=== PATIENT | female | born 1955 | race African-American/Black ===

== ENCOUNTER 2016-06-19 03:57 | Emergency (ER) | payer OTHER ==
[~2016-06-19] VITALS: Ht 160 cm; Wt 99.8 kg
[2016-06-19 04:21] VITALS: BP 148/70
[2016-06-19] MEDS ORDERED: NORCO 10-325 T1 EACH ORAL (04:31)
[2016-06-19] MEDS ORDERED: AMLODIPINE BESYL5 MG ORAL (04:31)
[2016-06-19] MEDS ORDERED: LISINOPRIL2.5 MG ORAL (04:31)
--- NOTE | 2016-06-19 04:52 | Emergency Room Report ---
History of Present Illness General Chief Complaint: Abdominal Pain Source: Patient Present Illness HPI Is a 60-year-old female with no past history. She presents with 2 complaints. First complaint is that she has a chronic cough since December. Occasional phlegm. Worse with lying flat. No fever chills been no weight loss. She only smokes occasionally. No family history or personal history of asthma. Her second complaint is abdominal pain. Pain is diffuse. Throbbing in nature. No vomiting or diarrhea. No fever. Onset for 2 days. Allergies: Coded Allergies: No Known Allergies (Unverified , 06/19/16) Patient History Past Medical History: see triage record, old chart reviewed Past Surgical History: hysterectomy Pertinent Family History: none Social History: Reports: smoking Last Menstrual Period: hysterectomy 2000 Now: No : 3 Para: 1 Reviewed Nursing Documentation: PMH: Agreed, PSxH: Agreed Nursing Documentation-PMH Past Medical History: No History, Except For Hx Hypertension: Yes Review of Systems Eye: Denies: blurred vision, eye pain ENT: Denies: ear pain, nose congestion, throat swelling Respiratory: Reports: cough, Denies: shortness of breath Cardiovascular: Denies: chest pain, palpitations Gastrointestinal: Reports: abdominal pain, Denies: diarrhea, nausea, vomiting Musculoskeletal: Denies: back pain, joint pain Skin: Denies: rash Neurological: Denies: headache, numbness Endocrine: Denies: increased thirst, increased urine Hematologic/Lymphatic: Denies: easy bruising All Other Systems: negative except mentioned in HPI Physical Exam Vital Signs Date Time Temp Pulse Resp B/P Pulse Ox O2 Delivery O2 Flow Rate FiO2 06/19/16 04:21 98.4 99 21 135/86 98 Room Air vitals normal Sp02 EP Interpretation: reviewed, normal General Appearance: well appearing, no apparent distress, alert, obese Head: normocephalic, atraumatic Eyes: bilateral eye EOMI, bilateral eye PERRL ENT: hearing grossly normal, normal pharynx Neck: full range of motion, supple, no meningismus Respiratory: chest non-tender, lungs clear, normal breath sounds Cardiovascular #1: regular rate, rhythm, no murmur Gastrointestinal: normal bowel sounds, no mass, no organomegaly, no bruit, non- distended, tenderness - diffuse Musculoskeletal: back normal, gait/station normal, normal range of motion Psychiatric: mood/affect normal Skin: warm/dry Medical Decision Making Diagnostic Impression: Primary Impression: Cough Additional Impressions: Abdominal pain Qualified Codes: R10.84 - Generalized abdominal pain UTI (urinary tract infection) Qualified Codes: N30.00 - Acute cystitis without hematuria Cholelithiasis Qualified Codes: K80.80 - Other cholelithiasis without obstruction ER Course She presents with chronic cough. Chest x-rays unremarkable. No evidence of pneumonia. No evidence of ACS, PE, dissection to name a few. May be secondary to bronchitis. We'll put her on inhaler. She has a large calcified gallstone. No evidence of obstruction. Pain resolved now. We'll be referred to see surgeon for further workup. Need to rule out neoplastic process. Lab Results Impression labs unremarkable Chest X-Ray Diagnostic Results EP Interpretation: Yes Findings: no consolidation, no effusion, no pneumothorax, no acute cardiopulmonary disease Number of Views: 1 CT/MRI/US Diagnostic Results CT/MRI/US Diagnostic Results : Imaging Test Ordered: ct abd and pelvis Impression CT read by radiologist. Fatty liver Gallstone. Last Vital Signs Date Time Temp Pulse Resp B/P Pulse Ox O2 Delivery O2 Flow Rate FiO2 06/19/16 04:21 98.4 99 21 135/86 98 Room Air Status: improved Disposition: HOME, SELF-CARE Condition: Stable Scripts Cephalexin* (KEFLEX*) 500 Mg Capsule 500 MG ORAL TID, #21 CAP 0 Refills Prov: BREA HDZ M.D. 06/19/16 Albuterol Sulfate* (ALBUTEROL SULFATE MDI*) 8.5 Gm Hfa.aer.ad 2 PUFF INH Q4H Y for cough/wheezing, #1 EA 0 Refills Prov: BREA HDZ M.D. 06/19/16 Hydrocodone Bit/Acetaminophen 5-325* (NORCO 5-325*) 1 Each Tablet 1 TAB ORAL Q6H Y for For Pain, #20 TAB 0 Refills Prov: BREA HDZ M.D. 06/19/16 Additional Instructions: Followup your DrMariah in 7 days. Return if symptom worsen. You would be further workup on your gallbladder. You may need a referral to see a surgeon. BREA HDZ M.D. Jun 19, 2016 04:51
[2016-06-19] MEDS ORDERED: Ketorolac 30mg Inj IV ONE (05:00)
[2016-06-19 05:27] LABS: BASOPHILS % (AUTO) 1.1 % (0.0-2.0); EOSINOPHILS % (AUTO) 0.2 % (0.0-3.0); LYMPHOCYTES % (AUTO) 30.7 % (20.0-45.0); MEAN CORPUSCULAR HEMOGLOBIN 30.6 PG (27.0-31.0); MEAN CORPUSCULAR HGB CONC 32.7 G/DL (32.0-36.0); MEAN CORPUSCULAR VOLUME 93 FL (80-99); MEAN PLATELET VOLUME 6.5 FL (6.5-10.1); PLATELET COUNT 377 K/UL (150-450); RED CELL DISTRIBUTION WIDTH 12.4 % (11.6-14.8); WHITE BLOOD COUNT 13.1 K/UL (4.8-10.8)
[2016-06-19 05:28] LABS: KETONES,URINE NEGATIVE (NEGATIVE); LEUKOCYTE ESTERASE ,URINE 2+ (NEGATIVE); NITRITE,URINE NEGATIVE (NEGATIVE); PH,URINE 5 (4.5-8.0); PROTEIN,URINE 1+ (NEGATIVE); UROBILINOGEN,URINE 1 MG/DL (0.0-1.0)
[2016-06-19 05:45] LABS: APPEARANCE,URINE SLIGHTLY CLOUDY
[2016-06-19 05:46] LABS: BACTERIA,URINE MODERATE /HPF; RBC,URINE 0-2 /HPF (0 - 2); SQUAMOUS EPITHELIAL CELL,UR MANY /LPF (NONE/OCC); WBC,URINE 15-20 /HPF (0 - 2)
[2016-06-19] MEDS ORDERED: cefTRIAXone 1 GM in NS 55 ML IVPB ONE (06:00)
[2016-06-19 06:08] LABS: ALANINE AMINOTRANSFERASE 85 U/L (3-33); ALBUMIN/GLOBULIN RATIO 0.8 (1.0-2.7); ANION GAP 17 (5-15); ASPARTATE AMINO TRANSFERASE 62 U/L (5-40); CALCIUM 9.4 mg/dL (8.6-10.2); CARBON DIOXIDE 24 mEQ/L (20-30); CHLORIDE 98 mEQ/L (98-107); CREATININE 0.6 mg/dL (0.5-0.9); GLOMERULAR FILTRATION RATE > 60 mL/min (>60); HEMOLYSIS 3; LIPASE 14 U/L (< 60); POTASSIUM 4.4 mEQ/L (3.4-4.9); SODIUM 139 mEQ/L (135-145); TOTAL PROTEIN 8.2 g/dL (6.6-8.7)
[2016-06-19 06:21] VITALS: BP 144/74
[2016-06-19] MEDS ORDERED: NORCO 5-325 TA1 EACH ORAL (06:46)
[2016-06-19] MEDS ORDERED: ALBUTEROL SULF8.5 GM INH (06:46)
[2016-06-19] MEDS ORDERED: KEFLEX500 MG ORAL (06:46)
[2016-06-19 07:20] VITALS: BP 118/70
[2016-06-19 07:22] VITALS: BP 118/70
--- NOTE | 2016-06-19 09:22 | Diagnostic Imaging Report ---
Clinical Indication: Abdominal pain Technique: No oral contrast utilized, per emergency room physician request IV administration nonionic contrast. Venous phase spiral acquisition obtained through the abdomen and pelvis. Multiplanar reconstructions were generated. Total dose length product 916 mGycm. CTDIvol(s) 18 mGy Comparison: None Findings: There are colonic diverticula. No evidence of diverticulitis. The appendix is normal. No small bowel distention. No free or loculated intraperitoneal air or fluid. No acute process there is a large gallstone. No gallbladder wall thickening or pericholecystic inflammation. No biliary ductal dilatation. The liver is mildly hypoattenuating diffusely. Pancreas, spleen, adrenals, kidneys are unremarkable. The included lung bases demonstrate posterior dependent atelectatic changes. Some atelectasis is seen within the lingula as well. The bones are unremarkable except for degenerative facet disease of the lumbar spine. Impression: No acute abnormality Fatty liver Cholelithiasis Diverticulosis Mild degenerative spondylosis This agrees with the preliminary interpretation provided overnight by [facility]. The CT scanner at [facility] is accredited by the [employer] and the scans are performed using protocols designed to limit radiation exposure to as low as reasonably achievable to attain images of sufficient resolution adequate for diagnostic evaluation.
--- NOTE | 2016-06-19 11:55 | Diagnostic Imaging Report ---
Indication: SOB Technique: One view of the chest Comparison: none Findings: Lungs and pleural spaces are clear. Heart size is normal Impression: No acute process
== END 2016-06-19 07:20 | disposition home or self-care (01) ==
LOC: EMR 05:05
DX: N30.00 Acute cystitis without hematuria (principal); R05 Cough; K80.80 Other cholelithiasis without obstruction; Z90.710 Acquired absence of both cervix and uterus; I10 Essential (primary) hypertension; K76.0 Fatty (change of) liver, not elsewhere classified
CPT/HCPCS: 36415; 71010; 74177; 80053; 81003; 83690; 85025; 87086; 87181; 96374; 96375; 99284; J0696; J1885; Q9967

== ENCOUNTER 2016-11-05 03:41 | Emergency (ER) | payer MEDICARE, MEDICAID ==
[~2016-11-05] VITALS: Ht 162.6 cm; Wt 102.1 kg
[~2016-11-05 03:41] MED LIST: ALBUTEROL SULF8.5 GM INH; AMLODIPINE BESYL5 MG ORAL; KEFLEX500 MG ORAL; LISINOPRIL2.5 MG ORAL; NORCO 10-325 T1 EACH ORAL; NORCO 5-325 TA1 EACH ORAL
[2016-11-05 04:05] VITALS: BP 137/85
[2016-11-05] MEDS ORDERED: BUPROPION HCL75 MG PO (04:05)
[2016-11-05] MEDS ORDERED: AMLODIPINE BESY10 MG ORAL (04:05)
[2016-11-05] MEDS ORDERED: Norco 5mg/325mg tab ORAL ONE (04:15)
[2016-11-05 05:46] LABS: MEAN CORPUSCULAR HEMOGLOBIN 30.6 PG (27.0-31.0); MEAN CORPUSCULAR HGB CONC 32.3 G/DL (32.0-36.0); MEAN CORPUSCULAR VOLUME 95 FL (80-99); MEAN PLATELET VOLUME 6.4 FL (6.5-10.1); PLATELET COUNT 342 K/UL (150-450); RED BLOOD COUNT 4.83 M/UL (4.20-5.40); RED CELL DISTRIBUTION WIDTH 11.8 % (11.6-14.8); WHITE BLOOD COUNT 7.4 K/UL (4.8-10.8)
[2016-11-05] MEDS ORDERED: HYDROCODON-ACE1 EA15 ORAL (06:06)
[2016-11-05] MEDS ORDERED: CLINDAMYCIN HC300 MG ORAL (06:06)
--- NOTE | 2016-11-05 06:06 | Emergency Room Report ---
History of Present Illness General Chief Complaint: Pain Source: Patient Present Illness HPI Is a 60-year-old female with a history of arthritis and high blood pressure. She presents with chief complaint of left knee pain. Onset tonight. She's been sleeping on the ground because she threw in her beddings and carpet because of bedbugs. She woke up with left knee pain. Denies any fever chills denies any denies or vomiting. Worse with walking. Is some slight swelling to it. Denies any other complaint. Pain is 8/10. Has not take anything for this. She is out of her pain medication. Allergies: Coded Allergies: No Known Allergies (Unverified , 06/19/16) Patient History Past Medical History: see triage record, old chart reviewed, HTN Past Surgical History: other Pertinent Family History: none Social History: Denies: smoking Now: No Immunizations: other Reviewed Nursing Documentation: PMH: Agreed, PSxH: Agreed Nursing Documentation-PMH Past Medical History: No History, Except For Hx Hypertension: Yes Review of Systems Eye: Denies: blurred vision, eye pain ENT: Denies: ear pain, nose congestion, throat swelling Respiratory: Denies: cough, shortness of breath Cardiovascular: Denies: chest pain, palpitations Gastrointestinal: Denies: abdominal pain, diarrhea, nausea, vomiting Musculoskeletal: Reports: joint pain, Denies: back pain Skin: Denies: rash Neurological: Denies: headache, numbness Endocrine: Denies: increased thirst, increased urine Hematologic/Lymphatic: Denies: easy bruising All Other Systems: negative except mentioned in HPI Physical Exam Vital Signs Date Time Temp Pulse Resp B/P Pulse Ox O2 Delivery O2 Flow Rate FiO2 11/05/16 03:57 98.1 83 16 137/85 99 Room Air vitals normal Sp02 EP Interpretation: reviewed, normal General Appearance: well appearing, no apparent distress, alert Head: normocephalic, atraumatic Eyes: bilateral eye EOMI, bilateral eye PERRL ENT: hearing grossly normal, normal pharynx Neck: full range of motion, supple, no meningismus Respiratory: chest non-tender, lungs clear, normal breath sounds Cardiovascular #1: regular rate, rhythm, no murmur Gastrointestinal: normal bowel sounds, non tender, no mass, no organomegaly, no bruit, non-distended Musculoskeletal: back normal, normal range of motion, other - Left knee with mild tenderness. Full range of motion. Mild erythema in the lateral aspect. Sensation normal. Neurologic: alert, oriented x3 Psychiatric: mood/affect normal Skin: warm/dry Medical Decision Making Diagnostic Impression: Primary Impression: Left knee pain Qualified Codes: M25.562 - Pain in left knee Additional Impression: Cellulitis of left knee ER Course Patient with left knee pain. She may have a mild cellulitis. No evidence of deep infection. No evidence of septic joint. She is moving her knee without any problem. Uric acid is normal so doubt less likely. We'll discharge home with close followup. Last Vital Signs Date Time Temp Pulse Resp B/P Pulse Ox O2 Delivery O2 Flow Rate FiO2 11/05/16 04:17 98.1 11/05/16 04:05 16 137/85 99 Room Air 11/05/16 03:57 83 Status: improved Disposition: HOME, SELF-CARE Condition: Stable Scripts Hydrocodone/Acetaminophen 5-325* (HYDROCODONE/ACETAMINOPHEN 5-325*) 1 Each Tablet 1 TAB ORAL Q6H Y for For Pain, #10 TAB 0 Refills Prov: BREA HDZ M.D. 11/05/16 Clindamycin Hcl (CLINDAMYCIN HCL) 300 Mg Capsule 300 MG ORAL THREE TIMES A DAY, #21 CAP Prov: BREA HDZ M.D. 11/05/16 Referrals: [facility],REFERRING (PCP) Additional Instructions: Followup with your in 2 to 3 days for recheck. Return if symptom worsen. BREA HDZ M.D. Nov 05, 2016 06:06
[2016-11-05 06:08] VITALS: BP 137/85
== END 2016-11-05 06:08 | disposition home or self-care (01) ==
LOC: EMR 04:53
DX: L03.116 Cellulitis of left lower limb (principal); I10 Essential (primary) hypertension
CPT/HCPCS: 36415; 84550; 85025; 99284

== ENCOUNTER 2016-12-13 13:03 | Emergency (ER) | payer MEDICARE, MEDICAID ==
[~2016-12-13] VITALS: Ht 160 cm; Wt 95.3 kg
[~2016-12-13 13:03] MED LIST changes: +AMLODIPINE BESY10 MG ORAL; +BUPROPION HCL75 MG PO; +CLINDAMYCIN HC300 MG ORAL; +HYDROCODON-ACE1 EA15 ORAL
[2016-12-13 13:05] VITALS: BP 137/85
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
[2016-12-13] MEDS ORDERED: NORCO 5-325 TA1 EAC1 ORAL (13:31)
[2016-12-13 13:33] VITALS: BP 131/82
== END 2016-12-13 13:33 | disposition home or self-care (01) ==
LOC: EMR 13:25
DX: S09.90XA Unspecified injury of head, initial encounter (principal); W22.8XXA Striking against or struck by other objects, initial encounter; Y93.9 Activity, unspecified; Y99.9 Unspecified external cause status
CPT/HCPCS: 99283

== ENCOUNTER 2017-11-15 10:17 | Emergency (ER) | payer MEDICARE, MEDICAID ==
[~2017-11-15] VITALS: Ht 160 cm; Wt 90.7 kg
[~2017-11-15 10:17] MED LIST changes: +NORCO 5-325 TA1 EAC1 ORAL
[2017-11-15 10:31] VITALS: BP 124/77
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
[2017-11-15 11:37] VITALS: BP 124/77
== END 2017-11-15 11:37 | disposition home or self-care (01) ==
LOC: EMR 11:09
DX: M54.5 Low back pain (principal); I10 Essential (primary) hypertension
CPT/HCPCS: 99282